=== PATIENT | male | born 1995 | race Caucasian/White ===

== ENCOUNTER 2021-09-26 22:39 | Emergency (ER) | payer OTHER ==
[~2021-09-26] VITALS: Ht 182.9 cm; Wt 70.0 kg
[2021-09-26 22:45] VITALS: BP 138/92
== END 2021-09-27 01:10 | disposition home or self-care (01) ==
LOC: EDSEX 22:39 → ER 22:39
DX: F41.9 Anxiety disorder, unspecified (principal); F15.90 Other stimulant use, unspecified, uncomplicated; F32.9 Major depressive disorder, single episode, unspecified; I49.8 Other specified cardiac arrhythmias; Z79.890 Hormone replacement therapy
CPT/HCPCS: 82962; 93005; 99283; 99284